=== PATIENT | female | born 1940 | race Caucasian/White ===

== ENCOUNTER 2025-04-26 11:14 | Emergency (ER) | payer MEDICARE ==
[2025-04-26 12:36] LABS: #Basophils 0.05 10x3/uL (0.0-0.2); #Eosinophils 0.27 10x3/uL (0.0-0.5); #Monocytes 0.99 10x3/uL (0.0-1.1); #Neutrophils 4.53 10x3/uL (1.5-8.4); %Basophils 0.7 % (0.0-2.0); %Eosinophils 3.6 % (0.0-6.0); %Lymphocytes 21.6 % (18.0-47.0); %Monocytes 13.2 % (0.0-10.0); %Neutrophils 60.5 % (40.0-75.0); Hematocrit 40.1 % (34.9-44.5); Hemoglobin 13.4 g/dL (12.0-15.5); Mean Corpuscular Hemoglobin 32.7 pg (27.0-33.0); Mean Corpuscular Volume 97.8 fL (81.6-98.3); Platelet Count 181 10x3/uL (150-450); Red Blood Cell (RBC) Count 4.10 10x6/uL (3.90-5.03); White Blood Cell (WBC) Count 7.49 10x3/uL (3.5-10.5)
[2025-04-26 12:37] LABS: ALT (SGPT) Less than 4 U/L (Less than 34); AST (SGOT) 19 U/L (11-34); Albumin 3.6 g/dL (3.1-4.5); Alkaline Phosphatase 108 U/L (40-110); Anion Gap 11 mmol/L (10-20); BUN (Urea Nitrogen) 21 mg/dL (9.8-20.1); Bilirubin, Total 0.8 mg/dL (0.3-1.2); Calc. Creatinine Clearance 0 mL/min (70-130); Calcium 8.7 mg/dL (7.8-10.44); Carbon Dioxide 24 mmol/L (23-31); Chloride 105 mmol/L (98-107); Globulin 3.2 g/dL (2.4-3.5); Glucose 92 mg/dL (83-110); Potassium 4.0 mmol/L (3.5-5.1); Sodium 136 mmol/L (136-145)
[2025-04-26 12:40] LABS: Troponin I Less than 0.010 ng/mL (< 0.028)
== END 2025-04-26 13:44 | disposition home or self-care (01) ==
LOC: CSHERS 11:14
DX: R53.81 Other malaise (principal)
CPT/HCPCS: 36415; 70450; 71045; 80053; 83880; 84484; 85025; 87428; 93005; 94760

== ENCOUNTER 2025-05-10 11:17 | Emergency (ER) | payer MEDICARE ==
[2025-05-10 12:08] LABS: #Basophils 0.04 10x3/uL (0.0-0.2); #Eosinophils 0.23 10x3/uL (0.0-0.5); #Monocytes 0.86 10x3/uL (0.0-1.1); #Neutrophils 3.14 10x3/uL (1.5-8.4); %Basophils 0.7 % (0.0-2.0); %Eosinophils 4.0 % (0.0-6.0); %Lymphocytes 25.4 % (18.0-47.0); %Monocytes 15.0 % (0.0-10.0); %Neutrophils 54.7 % (40.0-75.0); Hematocrit 39.6 % (34.9-44.5); Hemoglobin 13.4 g/dL (12.0-15.5); Mean Corpuscular Hemoglobin 33.3 pg (27.0-33.0); Mean Corpuscular Volume 98.3 fL (81.6-98.3); Platelet Count 187 10x3/uL (150-450); Red Blood Cell (RBC) Count 4.03 10x6/uL (3.90-5.03); White Blood Cell (WBC) Count 5.74 10x3/uL (3.5-10.5)
[2025-05-10 12:27] LABS: ALT (SGPT) Less than 4 U/L (Less than 34); AST (SGOT) 18 U/L (11-34); Albumin 3.7 g/dL (3.1-4.5); Alkaline Phosphatase 116 U/L (40-110); Anion Gap 12 mmol/L (10-20); BUN (Urea Nitrogen) 19 mg/dL (9.8-20.1); Bilirubin, Total 0.8 mg/dL (0.3-1.2); CK (CPK) 69 U/L (29-168); Calc. Creatinine Clearance 0 mL/min (70-130); Calcium 8.9 mg/dL (7.8-10.44); Carbon Dioxide 24 mmol/L (23-31); Chloride 107 mmol/L (98-107); Globulin 3.2 g/dL (2.4-3.5); Glucose 89 mg/dL (83-110); Lipase 21 U/L (8-78); Potassium 4.0 mmol/L (3.5-5.1); Sodium 139 mmol/L (136-145)
[2025-05-10 12:30] LABS: Troponin I Less than 0.010 ng/mL (< 0.028)
[2025-05-10 14:02] LABS: Glucose, Urine (Dipstick) Normal (Negative); Leukocyte 100 (Negative); Protein, Urine (Dipstick) Negative (Neg-Trace); Specific Gravity, Urine 1.010 (1.005-1.030)
[2025-05-10 14:19] LABS: CAUTI Indications for Culture Fever or rigors; RBC/HPF None Seen HPF (0-3); WBC/HPF 0-3 HPF (0-3)
[2025-05-10 14:20] LABS: Bacteria/HPF Rare-Few HPF (None Seen)
[2025-05-10 14:21] LABS: Urine Culture Reflex No No
== END 2025-05-10 14:48 | disposition home or self-care (01) ==
LOC: CSHERS 11:17
DX: R53.1 Weakness (principal); R53.81 Other malaise; R29.700 NIHSS score 0; E78.5 Hyperlipidemia, unspecified; Z79.899 Other long term (current) drug therapy
CPT/HCPCS: 71045; 80053; 81001; 82550; 83690; 83880; 84443; 84484; 85025; 87428; 93005; 94760

== ENCOUNTER 2025-05-14 13:42 | Emergency (ER) | payer MEDICARE | END 2025-05-14 15:10 | disposition left against medical advice (07) | LOC: CSHERS 13:42 | DX: Z53.21 Procedure and treatment not carried out due to patient leaving prior to being seen by health care provider (principal) ==